=== PATIENT | male | born 1955 | race Caucasian/White ===

== ENCOUNTER → 2018-07-20 11:33 | Outpatient (CLI) | payer OTHER, SELFPAY ==
[2018-07-20 12:23] LABS: Add Manual Diff / Slide Review NO; Basophils Absolute Auto 100 /uL (0-100); Basophils Percent Auto 0.6 % (0-2); Eosinophils Absolute Auto 100 /uL (0-450); Eosinophils Percent Auto 1.4 % (2-4); Hemoglobin 16.1 g/dL (13.5-17.5); Lymphocytes Absolute Auto 2500 /uL (1100-4500); Lymphocytes Percent Auto 25.1 % (25-40); Mean Corpuscular HGB Conc 33.5 % (30-36); Mean Corpuscular Hemoglobin 30.9 PG (26-34); Mean Corpuscular Volume 92.1 fL (80-100); Monocytes Absolute Auto 900 /uL (0-900); Monocytes Percent Auto 8.6 % (3-14); Neutrophils Absolute Auto 6500 /uL (1500-7000); Neutrophils Percent Auto 64.3 % (50-75); Platelet Count 341 X10^3/uL (150-400); Red Blood Cell Count 5.22 X10^6/uL (4.5-5.9); White Blood Cell Count 10.1 X10^3/uL (4.5-11.0)
[2018-07-20 12:44] LABS: Alanine Aminotransferase 30 IU/L (21-72); Albumin 4.2 g/dL (3.5-5.0); Albumin Globulin Ratio 1.4 (1.0-2.8); Alkaline Phosphatase 73 U/L (38-126); Aspartate Aminotransferase 32 IU/L (17-59); BUN Creatinine Ratio 21.1 (6-22); Bilirubin Total 0.5 mg/dL (0.2-1.3); Blood Urea Nitrogen 19 mg/dL (9-20); Carbon Dioxide 30 mmol/L (22-32); Chloride 104 mmol/L (98-107); Cholesterol 187 mg/dL (140-199); Estimated Glomerular Filt Rate > 60.0 mL/min (>60); Globulin 3.1 g/dL (1.7-4.1); Glucose 105 mg/dL (80-110); HDL Cholesterol 48 mg/dL (40-60); HEMOLYSIS < 15 (0-50); LDL Cholesterol Calculated 125 mg/dL (<100); Potassium 4.4 mmol/L (3.4-5.1); Sodium 141 mmol/L (137-145); Total Protein 7.3 g/dL (6.3-8.2); Triglycerides 71 mg/dL (35-150)
[2018-07-20 13:11] LABS: TSH w/ Reflex to FT4 0.99 uIU/mL (0.47-4.68)
== END ==
PROVIDERS: Visit Provider Internal Medicine
DX: M81.0 Age-related osteoporosis without current pathological fracture (principal); F34.1 Dysthymic disorder; F41.1 Generalized anxiety disorder; Z00.00 Encounter for general adult medical examination without abnormal findings
CPT/HCPCS: 36415; 80053; 80061; 84443; 85025

== ENCOUNTER 2018-10-12 11:40 | Day surgery (SDC) | payer OTHER, SELFPAY ==
--- NOTE | 2018-10-12 | PATH_ITS ---
[facility] Accession Number: [id number] . 01 Material submitted: . PART A: colon - RIGHT COLON POLYP PART B: colon - COLON POLYP AT 50 CM X2 . 02 Diagnosis: A. Right Colon, Polyp, Biopsy: Tubular adenoma. . B. Colon, Polyp at 50 cm x2, Biopsies: Tubular adenomas. MRV/10/13/2018 . 02 Electronically signed: . Sushma Moulton MD, Pathologist NPI- [id number] . 01 Gross description: . Part A: RIGHT COLON POLYP: Received in formalin is 1 fragment(s) of owens, soft tissue measuring 0.3 x 0.2 x 0.2 cm which is entirely submitted and submitted entirely in 1 cassette(s). Part B: COLON POLYP AT 50 CM X2: Received in formalin are 2 fragment(s) of owens, soft tissue measuring 0.3 x 0.2 x 0.2 cm to 0.4 x 0.3 x 0.3 cm which is entirely submitted and submitted entirely in 1 cassette(s) /[facility] /[facility] . 02 Pathologist provided ICD-10: D12.6 . 02 CPT . 156362, [id number] Performed at: 01 [facility] [address], [place], [place] [id number] MD Altaf Mcdaniels MD Phone: [phone] Performed at: 02 [facility] [address] [place], [place] [id number] MD Sushma Moulton MD Phone: [phone]
[2018-10-12 12:01] VITALS: BP 160/69; PULSE 56; RESP 18; TEMP 36.2; O2SAT 99; BMI 24.5
--- NOTE | 2018-10-12 12:29 | PM.HP.1 ---
History of Present Illness Date Patient Seen: 10/12/18 Time Patient Seen: 12:29 Chief complaint: [id number] Narrative: Colon cancer screening Patient History Medical History (Updated 10/12/18 @ 12:29 by Yulisa Martinez MD) Anxiety (Acute) Social History household members: significant other Smoking Status: Current some day smoker (nataly) Family & Social History Social History: household members significant other Tobacco & Substance use: Smoking Status Current some day smoker Meds Home Medications Medication Instructions Recorded Confirmed Type clonazepam 0.5 mg tablet 0.25 mg PO BID PRN #20 tab 09/29/18 10/12/18 Rx divalproex 500 mg tablet,delayed 1,000 mg PO BID #120 tab 09/29/18 10/12/18 Rx release Allergies Allergy/AdvReac Type Severity Reaction Status Date / Time Penicillins Allergy hives/swell Verified 08/16/18 08:37 ing Exam Vital Signs (past 8 hours): - 10/12/18 12:01 Temperature 97.2 F L Pulse Rate 56 L Respiratory Rate 18 Blood Pressure 160/69 H Pulse Oximetry 99 Oxygen Delivery Method Room Air Narrative Exam Narrative: Oropharynx free of lesions Chest clear to auscultation percussion Cardiac exam reveals no S3 or murmur Assessment & Plan Assessment & Plan narrative: Need for colorectal cancer screening. Risks, benefits, alternatives have been explained.
--- NOTE | 2018-10-12 12:30 | PM.OP.ENDO ---
Operative Date/Time/Diagnoses Date of procedure: 10/12/18 Time of procedure: 12:30 Pre-op diagnosis: See indication and findings Procedure & Clinicians Study performed: Colonoscopy Same procedure as scheduled: Yes Indications: Screening, history of colon polyps Surgeon: Yulisa Martinez Procedure Notes Procedure in detail: After informed consent was obtained the patient was placed left lateral decubitus position. The video colonoscope was introduced the rectum slowly advanced to the cecum. On slow withdrawal mucosa was carefully examined. The scope was removed. The patient tolerated the procedure well. Preparation was good. Blood loss none Complications none Sedation Total sedation time 31 minutes Fentanyl 200 micro g Versed 8 mg IV titration Findings 1. 4 mm polyp in the ascending colon Jumbo biopsy removed completely 2. Previous polypectomy site tattoo noted at approximately 50 cm from the rectum 3. 6 mm polyp opposite the tattoo snared and removed completely 4. 4 mm polyp nearby Jumbo biopsy removed completely and placed in same bottle as above Adult the patient appreciated the size of previous polyp or that he had a tattoo. I think given his history and 3 more polyps found he should have follow-up colonoscopy in 3 years.
[2018-10-12 13:34] VITALS: BP 150/76; PULSE 60; RESP 13; TEMP 36.9; O2SAT 96
[2018-10-12 13:39] VITALS: BP 142/84; PULSE 59; RESP 16; O2SAT 95
--- NOTE | 2018-10-12 13:43 | SUR.PHASEI ---
Arouses easily to voice, very talkative. Tolerating PO well. Prepared to transfer to [facility].
[2018-10-12 13:44] VITALS: BP 132/75; PULSE 58; RESP 14; O2SAT 95
[2018-10-12 14:02] VITALS: BP 115/66; PULSE 58; RESP 16; TEMP 36.6; O2SAT 97
[2018-10-12] MEDS: fentaNYL 250 MCG/5 ML INJ IV (14:06)
[2018-10-12] MEDS: MIDAZOLAM 5 MG/5 ML VIAL IV (14:06)
--- NOTE | 2018-10-12 14:11 | SUR.PHASEII ---
Belly soft, no complaints, called, pt left when ready and left in stable condition.
== END 2018-10-12 14:05 | disposition home or self-care (01) ==
LOC: ENDO 11:42
PROVIDERS: Visit Provider Internal Medicine Gastroenterology
PROC: 0DJD8ZZ Inspection of Lower Intestinal Tract, Via Natural or Artificial Opening Endoscopic (ICD-10-PCS; CPT 45378; principal; 2018-10-12 13:00)
DX: Z86.010 Personal history of colon polyps (principal); F41.9 Anxiety disorder, unspecified; D12.6 Benign neoplasm of colon, unspecified
CPT/HCPCS: 45380; 45381; J2250; J3010

== ENCOUNTER → 2018-10-24 08:29 | Outpatient (CLI) | payer OTHER, SELFPAY | PROVIDERS: Visit Provider Psychiatry & Neurology Psychiatry | DX: F31.63 Bipolar disorder, current episode mixed, severe, without psychotic features (principal) | CPT/HCPCS: 36415; 80164 ==

== ENCOUNTER → 2019-02-14 09:44 | Outpatient (CLI) | payer OTHER, SELFPAY | PROVIDERS: PCP Internal Medicine; Visit Provider Internal Medicine | DX: M85.852 Other specified disorders of bone density and structure, left thigh (principal) | CPT/HCPCS: 77080 ==

== ENCOUNTER → 2019-09-27 10:00 | Outpatient (CLI) | payer OTHER, SELFPAY ==
--- NOTE | 2019-09-27 | DI.CT.S_ITS ---
PROCEDURE: CT SINUS SCREEN WO CON INDICATIONS: Other chronic sinusitis TECHNIQUE: Noncontrast 3.0 mm axial images acquired from the frontal sinuses to the mid-sella, with coronal and sagittal reformats. For radiation dose reduction, the following was used: automated exposure control, adjustment of mA and/or kV according to patient size. COMPARISON: None. FINDINGS: Image quality: Excellent. Maxillary Sinuses: No bony remodeling or destruction. Sinuses are clear. Ethmoid Air Cells: No bony remodeling or destruction. Sinuses are clear. Sphenoid Sinuses: No bony remodeling or destruction. Sinuses are clear. Frontal Sinuses: No bony remodeling or destruction. Sinuses are clear. Ostiomeatal Complexes: Ostiomeatal complexes are patent. No Karina cells. Miscellaneous: Visualized intra-orbital contents are normal. No lorraine bullosa or paradoxical turbinate curvature. No nasal septal deviation. IMPRESSION: No findings of acute or chronic sinusitis. Dictated by: Jg Cabral M.D. on 09/27/2019 at 10:17 Approved by: Jg Cabral M.D. on 09/27/2019 at 10:19
== END ==
PROVIDERS: PCP Internal Medicine; Referring Provider Internal Medicine; Visit Provider Otolaryngology
DX: J32.8 Other chronic sinusitis (principal); R51 Headache
CPT/HCPCS: 70486

== ENCOUNTER → 2019-10-12 11:30 | Outpatient (CLI) | payer OTHER, SELFPAY ==
[2019-10-12 13:12] LABS: Alanine Aminotransferase 22 IU/L (<50); Albumin 4.4 g/dL (3.5-5.0); Albumin Globulin Ratio 1.5 (1.0-2.8); Alkaline Phosphatase 73 U/L (38-126); Aspartate Aminotransferase 33 IU/L (17-59); BUN Creatinine Ratio 18.3 (6-22); Bilirubin Total 0.5 mg/dL (0.2-1.3); Blood Urea Nitrogen 13 mg/dL (9-20); Calcium 11.1 mg/dL (8.4-10.2); Carbon Dioxide 29 mmol/L (22-32); Chloride 104 mmol/L (98-107); Estimated Glomerular Filt Rate > 60.0 mL/min (>60); Glucose 114 mg/dL (80-110); HEMOLYSIS < 15 (0-50); Potassium 4.1 mmol/L (3.4-5.1); Sodium 137 mmol/L (137-145); Total Protein 7.4 g/dL (6.3-8.2)
== END ==
PROVIDERS: PCP Internal Medicine; Referring Provider Internal Medicine; Visit Provider Internal Medicine
DX: Z00.00 Encounter for general adult medical examination without abnormal findings (principal); E83.52 Hypercalcemia
CPT/HCPCS: 36415; 80053

== ENCOUNTER → 2020-05-20 11:13 | Outpatient (CLI) | payer OTHER, SELFPAY ==
[2020-05-20 12:01] LABS: BUN Creatinine Ratio 21.1 (6-22); Blood Urea Nitrogen 15 mg/dL (9-20); Calcium 10.7 mg/dL (8.4-10.2); Carbon Dioxide 30 mmol/L (22-32); Chloride 104 mmol/L (98-107); Estimated Glomerular Filt Rate > 60.0 mL/min (>60); Glucose 101 mg/dL (80-110); HEMOLYSIS < 15 (0-50); Potassium 4.3 mmol/L (3.4-5.1); Sodium 138 mmol/L (137-145)
[2020-05-20 12:18] LABS: Vitamin D 25 Hydroxy (D3) 55.9 ng/mL (30.0-100.0)
[2020-05-20 13:14] LABS: Prostate Specific Antigen Scrn 2.31 ng/mL (0.1-4.0)
== END ==
PROVIDERS: PCP Student in an Organized Health Care Education/Training Program; Referring Provider Student in an Organized Health Care Education/Training Program; Visit Provider Student in an Organized Health Care Education/Training Program
DX: Z12.5 Encounter for screening for malignant neoplasm of prostate (principal); E83.52 Hypercalcemia; R42 Dizziness and giddiness; E55.9 Vitamin D deficiency, unspecified
CPT/HCPCS: 36415; 80048; 82306; G0103